=== PATIENT | female | born 1995 | race Caucasian/White ===

== ENCOUNTER 2019-03-21 09:45 | Emergency (ER) | payer BC, MEDICAID ==
--- NOTE | 2019-03-21 10:28 | EDM.PDOC ---
ED HPI GENERAL MEDICAL PROBLEM - General Chief Complaint: Laceration Stated Complaint: LACERATION OF SCALP Time Seen by Provider: 03/21/19 09:46 Source of Information: Reports: Patient History Limitations: Reports: No Limitations - History of Present Illness INITIAL COMMENTS - FREE TEXT/NARRATIVE: Pt. sustained a 2 cm. occipital scalp laceration. Unknown specifically what happened to cause the injury. She had a shower this AM and staff reported that there was no injury at that time. The injury happened sometime after 729. There was no fall or significant trauma. Pt. has a history of profound intellectual disability and rocks back and forth; possibly she struck her head during that. The patient has been awake and otherwise behaving appropriately since the even. Her tetanus is up to date. Pt. resides in [facility] here in [place]. Onset: Today Onset Date: 03/21/19 Location: Reports: Head - Related Data Allergies Allergy/AdvReac Type Severity Reaction Status Date / Time No Known Allergies Allergy Verified 03/21/19 09:52 ED ROS GENERAL - Review of Systems Review Of Systems: Unable To Obtain ED EXAM, SKIN/RASH Exam: See Below Exam Limited By: No Limitations General Appearance: Alert, WD/WN, No Apparent Distress Eye Exam: Bilateral Eye: EOMI, PERRL Head: Other (2 cm scalp laceration to occiput. It is fairly superficial with mild gaping.) ED SKIN PROCEDURES - Laceration/Wound Repair Head Lac/Wound length In cm: 2 Appearance: Subcutaneous Anesthetic Type: Local Local Anesthesia - Lidocaine (Xylocaine): 1% Plain Local Anesthetic Volume: 3cc Skin Prep: Chlorhexidine (Hibiciens), Saline Exploration/Debridement/Repair: Wound Explored, Explored to Base Closed with: Ruth # of Sutures: 3 Course - Orders/Labs/Meds Meds: Medications Discontinued Medications Generic Name Dose Route Start Last Admin Trade Name Chance PRN Reason Stop Dose Admin Lidocaine HCl 5 ml 03/21/19 09:53 03/21/19 10:15 Xylocaine-Mpf 1% INJECT 03/21/19 09:54 5 ml ONETIME ONE Administration Departure - Departure Time of Disposition: 10:31 Disposition: Home, Self-Care 01 Condition: Good Clinical Impression: Occipital scalp laceration - Discharge Information Instructions: Laceration Care, Adult, Stitches, Martha, or Adhesive Wound Closure, [id number] Additional Instructions: Keep dry for 24 hours. Return to ER or follow-up in clinic if there is any redness or discharge from the area. Staple removal in clinic March 30. - Problem List Review Problem List Initiated/Reviewed/Updated: Yes - Assessment/Plan Plan: Staple removal on March 30. She lopez follow-up sooner if there is any redness, swelling, or discharge from the area. Continue with other medications as prescribed. Also return to ER if there is any decreased level of consciousness or vomiting.
== END 2019-03-21 10:30 | disposition home or self-care (01) ==
LOC: VM.ED 09:45
DX: S01.01XA Laceration without foreign body of scalp, initial encounter (principal); X58.XXXA Exposure to other specified factors, initial encounter
CPT/HCPCS: 12001; 99282; J2001